=== PATIENT | male | born 1945 ===

== ENCOUNTER 2021-03-13 12:18 | Observation (INO) | payer MEDICARE, MEDICAID ==
[2021-03-13] VITALS (11 sets, daily range): BP systolic 94–118; BP diastolic 53–62; PULSE 59–96; TEMP 97.3–98.3
[2021-03-13] MEDS ORDERED: FLOMAX 0.40.4 MG/CAP PO (14:02)
[2021-03-13] MEDS ORDERED: LOPRESSOR 550 MG/TAB PO (14:02)
[2021-03-13] MEDS ORDERED: PACERONE200 MG PO (14:03)
[2021-03-13] MEDS ORDERED: PROTONIX 40MG T40 MG PO (14:03)
[2021-03-13] MEDS ORDERED: SEMGLEE PE100 UNIT/1 SQ (14:04)
[2021-03-13] MEDS ORDERED: ZOCOR 20MG20 MG PO (14:04)
[2021-03-13] MEDS ORDERED: DEMADEX 20MG20 M1 PO (14:05)
[2021-03-13] MEDS ORDERED: NEURONTIN300 MG/CAP PO ×2 (14:06)
--- NOTE | 2021-03-13 14:38 | NUR ---
Pt has recently arrived to the hospital via EMS. No pain complaints. Output is bloody with clots noted. Pt denies being in any pain. IV to his left hand with blood just finishing upon arrival. EMS unhooked tubing and placed in red bag. Pt is very talkative, oriented him to his room and placed in hospital gown. Pt aware that he is going to have surgery. Dr Soto aware pt has arrived on unit.
--- NOTE | 2021-03-13 16:29 | NUR ---
Pt off the floor for surgery
--- NOTE | 2021-03-13 18:49 | NUR ---
Pt arrived back from surgery. He is alert and oriented, daughter in room with him. Educated him on post op orders as well has having a rob catheter and how CBI works. Assisted him with ordering some dinner. Pt reports no pain , just states he can feel the catheter. CBI running at moderate rate. Output is pink with small clot noted
--- NOTE | 2021-03-14 03:51 | NUR ---
ALERT AND OX3. [address] WAY WARE TO DD W CBI RUNNING MODERATLY. STARTS TO GET CLOTS, IRRIGATED AND FLOW TURNED UP TO ALMOST WIDE OPEN. SEVERAL BAGS HUNG CBI OVERNIGHT. DID HAVE TO CALL DR DURAN FOR PAIN MED. TYL NOT WORKING. BNO WAS GIVEN IN POST OP. DR DURAN ORDER LEVOSIN PRN GIVEN TO PT. POC DISCUSSED. PM MEDS GIVEN.
[2021-03-14 05:14] VITALS: BP 95/43; PULSE 66; TEMP 98.5
[2021-03-14 06:44] LABS: MEAN CELL VOLUME 82 fl (80.0-100.0); MEAN CORPUSCULAR HGB CONC 31 g/dl (33.0-37.0); MEAN PLATELET VOLUME 9.7 fl (7.4-10.4); PLATELET COUNT 276 K/mm3 (130-400); RED BLOOD COUNT 3.56 M/mm3 (4.20-5.60); REDCELL DISTRIBUTION WIDTH-CV 19.1 % (11.5-14.5)
[2021-03-14 06:49] LABS: HEMATOCRIT 29.1 % (42.0-52.0); HEMOGLOBIN 8.9 g/dl (13.5-18.0); MEAN CORPUSCULAR HEMOGLOBIN 25 pg (27.0-31.0)
[2021-03-14 07:14] VITALS: BP 96/49; PULSE 95; TEMP 98
[2021-03-14 07:36] LABS: BAND 2 % (0-10); EOSINOPHIL 3 % (0-4); LYMPHOCYTE 12 % (20.0-51.0)
[2021-03-14 07:37] LABS: NEUTROPHILS 75 % (42.0-75.2)
[2021-03-14 07:38] LABS: ANISOCYTOSIS 2+; HYPOCHROMIA 2+; PLATELET ESTIMATE NORMAL (NORMAL)
--- NOTE | 2021-03-14 08:05 | NUR ---
called & given update on patient. Made aware of hypotension & Hemoglobin level. We reviewed meds. Orders to hold Lopressor at this time. Made him aware Cbi at a moderate rate with ortega red output.
--- NOTE | 2021-03-14 08:40 | NUR ---
Assessment completed. Dwayne removed from right leg. Scds to right leg applied. ampuation to left leg. Ivf per orders to Lfa. Patient complaints of pain, levsin given & hand irrigation to rob, no clots noted, but rob now flowing better. Pain better managed. Patient tolerted breakfast without nausea. We discussed him being diabetic, home insulin orders per prior order & blood sugar checked & stable. Will monitor.
--- NOTE | 2021-03-14 09:38 | NUR ---
Patient continues to rest in bed. Cbi continues to flow, rate slowed, pink output.
--- NOTE | 2021-03-14 11:31 | NUR ---
Patient resting in bed, ordering lunch. Cbi at slow red, output ortega red. Will monitor.
[2021-03-14 11:33] VITALS: BP 92/54; PULSE 95; TEMP 98.9
--- NOTE | 2021-03-14 11:44 | NUR ---
Update called & given to nurse. Patietn having questions & concerns.
--- NOTE | 2021-03-14 15:06 | NUR ---
SW met with the patient to discuss discharge plan. The patient lives alone in low-income housing in [place]. He reports needing some assistance with ADLs and has a walker and wheelchair. He reports that he has a caregiver from [address] [place] [address], Lilli Melchor, and that she assists him with bathing and cooking. He reports that she assists him 6-7 days a week. The patient's PCP is Dr. Sunshine Shields and he receives his medications from [facility]. He reports no difficulties obtaining his meds. The patient does not have a DPOA-HC in EMR, but he states that he does have one completed and that it designates his daughter, Taty Rodriguez (ph#[phone]). Taty lives in [place]. The patient report that he is not and that he has three children. The patient plans to return home upon discharge. He reports that his caregiver will transport him home. No additional needs at this time. *Discharge plan: home*
[2021-03-14 15:13] VITALS: BP 103/54; PULSE 95; TEMP 98.4
[2021-03-14] MEDS ORDERED: ALBUTEROL0.83 MG/ML IH (17:25)
[2021-03-14] MEDS ORDERED: PULMICORT0.5 MG/2 M IH (17:26)
--- NOTE | 2021-03-14 18:37 | NUR ---
Patient resting in bed. rounded this evening. Plan of care reviewed. Consent obtained. CBI continues to infuse at a slow to moderate rate, still remains ortega red in color & some sediment noted. Tolerates diet. supportive at bedside. scd to right leg. IVf per orders & Bp stable. Will report off to nightnurse
--- NOTE | 2021-03-14 19:11 | NUR ---
Prostetic cares given to his prostetic leg per request.
[2021-03-14 19:58] VITALS: BP 116/58; PULSE 71; TEMP 98.5
--- NOTE | 2021-03-14 20:00 | NUR ---
PATIENT IS ALERT AND ORIENTED X4. SITTING UP IN BED. PATIENT HAS WARE CATHETER WITH CBI RUNNING AT A STEADY RATE. OUTPUT IS RED AND CLEAR. PATIENT SCHEDULED FOR SURGERY AT 8AM. PATIENT HAS IV INT TO LEFT FOREARM. PATIENT TO BE NPO AT MIDNIGHT. PATIENT HAS LEFT BELOW THE KNEE AMPUTATION. PATIENT DENIES PAIN OR FURTHER NEEDS AT THIS TIME. CALL LIGHT WITHIN REACH. HEAD TO TOE ASSESSMENT COMPLETE.
[2021-03-15] VITALS (11 sets, daily range): BP systolic 86–114; BP diastolic 37–58; PULSE 53–100; TEMP 97.9–100
--- NOTE | 2021-03-15 06:18 | NUR ---
PATIENT DID WELL THROUGHOUT NIGHT. SLEPT THROUGH MOST OF NIGHT. HAD CBI RUNNING CONTINUOUSLY. OUTPUT IS RED AND CLEAR. IRRIGATED CBI TWICE. PATIENT DENIES PAIN OR FURTHER NEEDS. CALL LIGHT WITHIN REACH. WILL REPORT TO DAYSHIFT.
--- NOTE | 2021-03-15 06:58 | NUR ---
PATIENT HAD BP OF 84/38. DR DURAN NOTIFIED. STATED TO WAIT FOR H&H TO COME BACK AND THEN DECIDE IF MEASURES NEED TO BE TAKEN. PATIENT HAS BEEN RUNNING 90S/40S AND HAS FLUIDS RUNNING.
[2021-03-15 07:28] LABS: MEAN CELL VOLUME 81 fl (80.0-100.0); MEAN CORPUSCULAR HGB CONC 31 g/dl (33.0-37.0); MEAN PLATELET VOLUME 9.6 fl (7.4-10.4); PLATELET COUNT 289 K/mm3 (130-400); RED BLOOD COUNT 3.56 M/mm3 (4.20-5.60); REDCELL DISTRIBUTION WIDTH-CV 19.5 % (11.5-14.5)
[2021-03-15 07:29] LABS: HEMATOCRIT 28.9 % (42.0-52.0); HEMOGLOBIN 8.9 g/dl (13.5-18.0); MEAN CORPUSCULAR HEMOGLOBIN 25 pg (27.0-31.0)
--- NOTE | 2021-03-15 07:34 | NUR ---
PATIENT GOING DOWN TO OR VIA BED. CONSENT ON CHART.
[2021-03-15 08:49] LABS: EOSINOPHIL 4 % (0-4); HYPOCHROMIA 2+; LYMPHOCYTE 3 % (20.0-51.0); NEUTROPHILS 85 % (42.0-75.2); PLATELET ESTIMATE NORMAL (NORMAL)
[2021-03-15 08:50] LABS: ANISOCYTOSIS 1+; SCHISTOCYTES 1+
--- NOTE | 2021-03-15 11:00 | NUR ---
PATIENT IS BACK IN ROOM 329 POST OP. PATIENT IS ORIENTED BUT STATES HE FEELS "DRUNK". VSS. DENIES PAIN OR NAUSEA. WARE TO DD WITH CLEAR LIGHT PINK COLORED URINE WITH CBI INFUSING FAST RATE TO KEEP URINE FLOWING. DEVON KNOT INPLACE AND TO TENSION. HEAD TO TOE ASSESSMENT COMPLETE. LIQUIDS AT BEDSIDE. PATIENT RESTING QUIETLY UP IN BED WITH NO NEEDS. CALL LIGHT IN REACH. BED ALARM ON.
--- NOTE | 2021-03-15 19:33 | NUR ---
patient is complaining while eating dinner that he is having to use one hand to support the other in order to get spoon to mouth. rn observed hand to be very shaky. dr saul, operations project manager, notified. stated to continue monitoring.
--- NOTE | 2021-03-15 20:00 | NUR ---
PATIENT IS ALERT AND ORIENTED X4. SITTING UP IN BED TALKING. PATIENT IS ON ADA DIET AND ACHS. PATIENT HAS CBI RUNNING VERY QUICKLY TO KEEP OUTPUT LIGHT PINK. PATIENT HAS 40CC IN BALLOON OF WARE AND A DEVON KNOT TIED. PATIENT HAS IV TO LEFT FOREARM. PATIENT DENIES PAIN OR FURTHER NEEDS AT THIS TIME. CALL LIGHT WITHIN REACH. HEAD TO TOE ASSESSMENT COMPLETE.
[2021-03-16] VITALS (7 sets, daily range): BP systolic 93–119; BP diastolic 36–94; PULSE 65–101; TEMP 98.2–100.8
--- NOTE | 2021-03-16 05:15 | NUR ---
PATIENT HAD FEVER OF 100.8. DR DURAN, WARP SCOURING VAT TENDER, NOTIFIED. ORDERED UA AND 1G [place] ONCE DAILY FOR 3 DAYS. [facility] CALLED TO PUT IN ORDER.
[2021-03-16 05:53] LABS: COLLECTION METHOD CATHETER
[2021-03-16 06:26] LABS: PH 6 (5-8); SQUAMOUS EPITHELIAL None Seen /hpf; URINE APPEARANCE Cloudy; URINE BACTERIA None Seen /hpf; URINE BILIRUBIN Negative (NEGATIVE); URINE BLOOD 3+ (NEGATIVE); URINE CALCIUM OXALATE CRYSTAL Present /hpf; URINE COLOR Red; URINE GLUCOSE 1+ (NEGATIVE); URINE KETONE Negative (NEGATIVE); URINE LEUKOCYTE ESTERASE 1+ (NEGATIVE); URINE NITRATE Negative (NEGATIVE); URINE PROTEIN(semi-quant) 2+ (NEGATIVE); URINE RBC >50 /hpf; URINE UROBILINOGEN Negative (NEGATIVE)
[2021-03-16 06:36] LABS: MEAN CELL VOLUME 82 fl (80.0-100.0); MEAN CORPUSCULAR HGB CONC 31 g/dl (33.0-37.0); MEAN PLATELET VOLUME 9.7 fl (7.4-10.4); PLATELET COUNT 254 K/mm3 (130-400); RED BLOOD COUNT 3.05 M/mm3 (4.20-5.60); REDCELL DISTRIBUTION WIDTH-CV 19.9 % (11.5-14.5)
--- NOTE | 2021-03-16 06:38 | NUR ---
PATIENT DID WELL THROUGHOUT NIGHT. SLEPT OFF AND ON. CBI GOING FAST ALL NIGHT. OUTPUT IS LIGHT PINK. PATIENT STARTED ON IV ANTIBIOTICS DUE TO FEVER. PATIENT DENIES PAIN OR FURTHER NEEDS. WILL REPORT TO DAYSHIFT
[2021-03-16 06:41] LABS: HEMATOCRIT 24.9 % (42.0-52.0); HEMOGLOBIN 7.7 g/dl (13.5-18.0); MEAN CORPUSCULAR HEMOGLOBIN 25 pg (27.0-31.0)
--- NOTE | 2021-03-16 08:00 | NUR ---
PATIENT IS A&O AND REQUESTING TO GET OUT OF BED. PATIENT WAS 1-2 ASSIST TO BEDSIDE CHAIR WITH WALKER. GAIT IS WEAK. WARE TO DD WITH CBI INFUSING AT MOD RATE. URINE IS REDDISH, NO CLOTS. ADA DIET. NO C/O N/V. BREAKFAST TRAY ORDERED. AM MEDS GIVEN. NO OTHER NEEDS. CALL LIGHT IN REACH.
[2021-03-16 09:03] LABS: EOSINOPHIL 1 % (0-4); LYMPHOCYTE 21 % (20.0-51.0); NEUTROPHILS 69 % (42.0-75.2)
[2021-03-16 09:05] LABS: ANISOCYTOSIS 2+; HYPOCHROMIA 3+; PLATELET ESTIMATE NORMAL (NORMAL)
--- NOTE | 2021-03-16 17:30 | NUR ---
PATIENT FOUND SOAKED IN URINE. URINE IS LEAKING AROUND CATH SITE. CBI INFUSING BUT VERY LITTLE REDDISH URINE NOTED IN WARE BAG. PATIENT ASSISTED WITH 1-2 ASSIST BACK INTO BED FROM BEDSIDE CHAIR. IRRIGATED WITH 60CC OF FLUID AND REMOVED SEVERAL SMALL TISSUE CLOTS. URINE IS FREE FLOWING INTO WARE BAG. CBI AT MOD RATE. URINE IS NOW PINK, CLEAR. WARE STAT-LOCK INPLACE. DEVON KNOT INPLACE. WILL MONITOR
--- NOTE | 2021-03-16 20:00 | NUR ---
PT RESTING IN BED. O2 2L N/C. NO RESP DISTRESS. CBI INFUSING AT STEADY PACE TO KEEP URINE PINK AND CLEAR. NO CLOTS NOTED AT THIS TIME. CALL LIGHT IN REACH. BED ALARM SET.
[2021-03-17 03:52] VITALS: BP 115/60; PULSE 103; TEMP 98.1
[2021-03-17 07:17] LABS: PATHOLOGY DIFF REVIEW OK
--- NOTE | 2021-03-17 08:00 | NUR ---
PATIENT IS A&O AND SITTING UP IN BED WITH BREAKFAST TRAY. VSS. 02 @ 2L WITH SATS IN MID 90'S. NO C/O PAIN OR NAUSEA. LEFT FORARM IV TO INT. AM MEDS GIVEN. WARE TO DD WITH CBI INFUSING AT SLOW RATE. URINE IS LIGHT PINK, NO CLOTS. HEAD TO TOE ASSESSMENT COMPLETE, SEE CHARTING. NO OTHER NEEDS. CALL LIGHT IN REACH.
[2021-03-17 08:21] VITALS: BP 124/50; PULSE 104; TEMP 99.6
[2021-03-17 08:26] LABS: HEMATOCRIT 26.6 % (42.0-52.0); HEMOGLOBIN 8.1 g/dl (13.5-18.0)
--- NOTE | 2021-03-17 10:50 | NUR ---
P&P WARE PER VERBAL ORDERS FROM UROLOGY. NOTED 1750CC OF LIGHT PINK URINE IN WARE, A FEW SMALL TISSUE CLOTS PRESENT IN WARE BAG. INSTILLED 300CC OF IRRIGATION INTO BLADDER. DC'D WARE. PATIENT TOLERATED WELL. PATIENT EDUCATED ON 6 CUP ROUTINE.
[2021-03-17 12:13] VITALS: BP 102/62; PULSE 109; TEMP 98
--- NOTE | 2021-03-17 16:00 | NUR ---
PATIENT JUST COMPLETED 5TH CUP. URINE IS PINK, NO CLOTS.
--- NOTE | 2021-03-17 17:05 | NUR ---
PATIENT DISCHARGING HOME AFTER MEETING CRITERIA. GAVE DISCHARGE INSTRUCTIONS AND DISCUSSED F/U APT. ANSWERED QUESTIONS/CONCERNS. DC'D LEFT FORARM IV, COVERED SITE WITH GAUZE & COBAN. PATIENT IS DRESSED, PACKED AND DISCHARGED.
== END 2021-03-17 17:05 | disposition home or self-care (01) ==
LOC: SURG 13:42 → EDSTATUS 22:30 → SURG 22:30
PROVIDERS: Urology; ADMIT Urology
DX: N40.0 Benign prostatic hyperplasia without lower urinary tract symptoms (principal); N30.81 Other cystitis with hematuria; E11.9 Type 2 diabetes mellitus without complications; D64.9 Anemia, unspecified; I25.10 Atherosclerotic heart disease of native coronary artery without angina pectoris; I11.0 Hypertensive heart disease with heart failure; I50.9 Heart failure, unspecified; I48.91 Unspecified atrial fibrillation; I82.409 Acute embolism and thrombosis of unspecified deep veins of unspecified lower extremity; F17.210 Nicotine dependence, cigarettes, uncomplicated; Z79.82 Long term (current) use of aspirin; Z79.4 Long term (current) use of insulin; Z79.84 Long term (current) use of oral hypoglycemic drugs; Z79.899 Other long term (current) drug therapy; Z83.3 Family history of diabetes mellitus
CPT/HCPCS: G0378; J0690; J0696; J1815; J2370; J2405; J2704; J3010; J3480; J7030; J7050